=== PATIENT | female | born 1985 | race Caucasian/White ===

== ENCOUNTER 2025-01-05 12:16 | Outpatient (REF) | payer OTHER, SELFPAY ==
--- OUTSIDE RECORDS SUMMARY | 2025-01-05 17:28 | XMS_ITS | Encounter Summary ---
Author Organization [facility] Address [address] [place] [phone] Phone Care Team Providers Care Chucker Name Role Phone Kristy Carreon MD Primary Care Provider Unava ilable Encounter Details Date Type Department Care Team (Late st Contact Info) Description 09/16/2017 Conversion Encounter [facility] - [address] [address] Social History Tobacco Use Types Packs/Day Years [...] on filedocumented in this encounter Care Teams Chucker Relationship Specialty Start Date End Date Kristy Carreon MD PCP - General 06/25/17 documented as of this encounter
--- OUTSIDE RECORDS SUMMARY | 2025-01-05 17:28 | XMS_ITS | Clinical Summary ---
Author Organization [facility] Address [address] [place] [phone] Phone Care Team Providers Care Reed Polisher Name Role Phone Kristy Carreon MD Primary [...] age to complete this topic Care Teams Reed Polisher Relationship Specialty Start Date End Date Kristy Carreon MD PCP - General 06/25/17
[2025-01-06 13:42] LABS: Bacterial Vaginosis PCR POSITIVE (Negative); Candida Group PCR NOT DETECTED (Not Detect); Candida glab krusei PCR NOT DETECTED (Not Detect); Trichomonas vaginalis PCR NOT DETECTED (Not Detect)
[2025-01-06 13:58] LABS: CT PCR NOT DETECTED (Not Detect.); NG PCR NOT DETECTED (Not Detect.)
== END 2025-01-05 12:17 | disposition home or self-care (01) ==
LOC: HO.LNP 12:16
PROVIDERS: Visit Provider Physician Assistant Medical
DX: N89.8 Other specified noninflammatory disorders of vagina (principal)
CPT/HCPCS: 81515; 87491; 87591

== ENCOUNTER 2025-01-05 12:16 | Outpatient (AMB) | payer OTHER, SELFPAY ==
--- NOTE | 2025-01-05 12:44 | MHC.OFFWIV ---
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 Patient Tobacco Use Status: Current everyday Tobacco user Allergies aspirin Allergy (Unknown, Unverified 01/05/25 12:47) HIVES ibuprofen Allergy (Unknown, Unverified 01/05/25 12:47) HIVES Penicillins Allergy (Unknown, Unverified 01/05/25 12:47) HIVES acetaminophen [From Tylenol] Adverse Reaction (Intermediate, Verified 01/05/25 12:47) hives Do you need a note to return to daycare/school/sports/work: No HPI HPI Comments History of Present Illness Details This is a 39-year-old female who presented to the walk-in clinic today complaining of vaginal irritation, burning, and discharge. She states that these symptoms have been going on for 2 weeks. She was using opsa-oac-kikyexw anti-fungal creams for presumed yeast infection but states that her symptoms have persisted. She states that the discharge is thin and clear-white in color. She also states that she has burning of her external genitalia. She denies any urinary symptoms such as dysuria, hematuria, urinary frequency, or urinary urgency. She denies any pelvic or abdominal pain. She states she has been sexually active with a new partner recently. [facility] Social History Patient Tobacco Use Status: Current everyday Tobacco user Review of Systems Const All systems reviewed & are unremarkable except as noted in HPI and below Reports no additional complaints Eyes Reports no additional complaints ENT Reports no additional complaints Card Reports no additional complaints Resp Reports no additional complaints GI Reports no additional complaints Reports no additional complaints Musc Reports no additional complaints Skin/Breast Reports system reviewed and no additional complaints, except as documented Neuro Reports no additional complaints Psych Reports no additional complaints Endo Reports no additional complaints Rodo/Lymph Reports no additional complaints Aller/Immun Reports no additional complaints Physical Exam Vital Signs: Last Vital Signs Pulse 92 01/05/25 12:46 BP 112/74 01/05/25 12:46 Pulse Ox 95 01/05/25 12:46 Oxygen Delivery Method Room Air 01/05/25 12:46 Const Other: Vital signs reviewed. Constitutional: Non-toxic appearing. No acute distress. Well-developed and well-nourished. HEENT: Normocephalic and atraumatic. Skin: Warm and dry. No rashes or lesions noted. Neck: Full and painless range of motion. No cervical lymphadenopathy. Cardio: Regular rate. No lower extremity edema. Pulmonary: No respiratory distress. No accessory muscle usage. Gastrointestinal: Soft, nontender, and nondistended in all 4 quadrants. Genitourinary: There is no erythema or lesions of the external genitalia. No vaginal discharge appreciated. (Susana Hongna present as telegraph and teletype operator). Musculoskeletal: Normal range of motion in joints throughout the body. No deformity or other signs of injury. Neuro: Alert and oriented x4. Cranial nerves 2-12 grossly intact. No focal deficits appreciated. Psych: Normal mood and affect. Assessment & Plan Assessment & Plan (1) Vaginal irritation: Code(s): N89.8 - Other specified noninflammatory disorders of vagina Plan: This is a 39-year-old female who presented to the walk-in clinic complaining of vaginal irritation, burning, and discharge x2 weeks. On physical examination, there is no erythema or lesions of the external genitalia. BV panel and CT NG sent. Patient will be called with the results. Orders: Orders Bacterial Vaginosis Panel Today N89.8 - Other specified noninflammatory disorders of vagina CT NG by PCR Today N89.8 - Other specified noninflammatory disorders of vagina Coding Level of Care Code New Pt Level 3 (89472) Diagnoses Vaginal irritation N89.8
[2025-01-05 12:46] VITALS: BP 112/74; PULSE 92; O2SAT 95
--- OUTSIDE RECORDS SUMMARY | 2025-01-05 13:00 | XMS_ITS | Patient Health Record ---
Author Organization [facility] Address [address] [place] [address] Care Team Providers Care Point Of Sale Associate Name Role Phone Minerva-Nivia Hanson Primary Care Provider ARLYN Ye Unavailable [phone] Allergies Allergen (clinical drug ingredient) Drug/Non Drug Allergy documented on EMR Reaction Allergy Type Onset Date Status acetaminophen / oxycodone Percocet Vomiting Drug Allergy Active acetaminophen Acetaminophen Unknown Drug Allergy Active aspirin Aspirin Hives Drug Allergy Active oxycodone Oxycodone Vomiting Drug Allergy Active thimerosal Thimerosal Unknown Drug Allergy Activ e ibuprofen Ibuprofen Hives Drug Allergy Active Penicillin Hives Drug Allergy Active Reason For Referral No Information Medications Medication SIG (Take, Route, Frequency, Duration) Notes Start Date End Date Status buPROPion HCl ER (XL) 150 MG 1 tablet in the morning Orally Once a day Not-Taking Clobetasol Propionate 0.05 % 1 application Externally Twice a day Active Magnesium Oxide 400 MG 1 tablet as neede d Orally Once a day Active Plan Of Treatment Pending Test Test Name Order Date Nail avulsion partial/complete 2 Nail avulsion partial/complete 2 Removal of nail matrix 11/12/2023 Insurance Providers Payer Name Payer Address Payer Phone Subscriber Number Group Number Insured Name Patient Relationship to Insured Coverage Start Date Coverage End Date [facility] [place] 2[place] [address] [facility] [address] [place] [phone] [id number] Kathy Bobo Self - patient is the insured Medical (General) History Medical History History ICD Code Chronic Eczema Hypercholesterolemia Kawasaki's Disease Obese Class 1 PCOS (Polycystic Ovarian Syndrome) Supraventricular Tachycardia + COVID 10/2021 and 11/2022 COVID vaccinated X 2 (Pfizer) Surgical History Surgery Date(Month/Year) Atrial Ablation 11/01/2012 Right ACL Repair 12/21/02
--- OUTSIDE RECORDS SUMMARY | 2025-01-05 13:00 | XMS_ITS ---
Author Organization [facility] Address [address] [address] Care Team Providers Care Barrow Worker Helper Name Role Phone Nivia Sotomayor Primary Care Provider ANNABEL Ye Unavailable [phone] Allergies Allergen (clinical drug ingredient) Drug/Non Drug Allergy documented on EMR Reaction Allergy Type Onset Date Status acetaminophen / oxycodone Percocet Vomiting Drug Allergy Active acetaminophen Acetaminophen Unknown Drug Allergy Active aspirin Aspirin Hives Drug Allergy Active oxycodone Oxycodone Vomiting Drug Allergy Active thimerosal Thimerosal Unknown Drug Allergy Activ e ibuprofen Ibuprofen Hives Drug Allergy Active Penicillin Hives Drug Allergy Active REASON FOR VISIT B/L ingrown toenails , rt worst- Dr. Tolentino patient Medications Medication SIG (Take, Route, Frequency, Duration) Notes Start Date End Date Status buPROPion HCl ER (XL) 150 MG 1 tablet in the morning Orally Once a day Not-Taking Clobetasol Propionate 0.05 % 1 application Externally Twice a day Active Magnesium Oxide 400 MG 1 tablet as neede d Orally Once a day Active Vital Signs Weight 198.7 lbs 11/12/2023 Height 5ft 2in in 11/12/2023 BMI 36.34 kg/m2 11/12/2023 Heart Rate 80 /min 11/12/2023 Temperature 97.6 degrees Fahrenheit 11/12/20 23 Respiratory Rate 16 /min 11/12/2023 Procedures Procedure Date Ordered Date Performed Result Body Sit e Removal of nail matrix 11/12/2023 N/A Encounters Encounter Location Date Provider Diagnosis [facility] [address] [address] 11/12/2023 ANNABEL SANTAMARIA Ingrowing toenail of right foot L60.0 ; 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 I spent approximately 30 minutes [id number] with the patient. Discussed treatment options for ingrown toenails in detail. This consisted of soaking in Epsom salts twice daily, oral antibiotics to treat infection, partial/total nail avulsion to remove affecting border, and permanent nail avulsion using phenol. Due to the significant pincer deformity a decision was made to perform a total right hallux toenail avulsion and phenol application to the medial and lateral borders. I discussed with her that there is still a small chance the borders grow back or the nail is more damaged. I also discussed that the phenol will cause a burn and it can take 3-4 weeks to heal. She understood and wished to move forward. This procedure was peformed under local anesthetic and she tolerated this well. She was bandaged and given written post-op instructions. I will see her back in 2 weeks or sooner if needed. 11/12/2023 Pincer nail deformity (ICD-10 - L60.8) 11/12/2023 Pain around toenail, right foot (ICD-10 - M79.674) Plan Of Treatment Treatment Notes Assessment Notes Ingrowing toenail of right foot Patient was seen and examined, history reviewed. I spent approximately 30 minutes [id number] with the patient. Discussed treatment options for ingrown toenails in detail. This consisted of soaking in Epsom salts twice daily, oral antibiotics to treat infection, partial/total nail avulsion to remove affecting border, and permanent nail avulsion using phenol. Due to the significant pincer deformity a decision was made to perform a total right hallux toenail avulsion and phenol application to the medial and lateral borders. I discussed with her that there is still a small chance the borders grow back or the nail is more damaged. I also discussed that the phenol will cause a burn and it can take 3-4 weeks to heal. She understood and wished to move forward. This procedure was peformed under local anesthetic and she tolerated this well. She was bandaged and given written post-op instructions. I will see her back in 2 weeks or sooner if needed. Pending Test Test Name Order Date Removal of nail matrix 11/12/2023 Next Appt Details Follow Up: 2 Weeks, Reason: Progress Notes * Kathy GALVEZDOB: 7 (38 yo F)Acc No.[id number]:11/12/2023 Patient:?Kathy GALVEZ Provider:?Annabel Mitchell DPM :1985???Age:38 Y???Sex:Female D ate:11/12/2023 Address:[address] [place], [place] [address] Pcp:Nivia Sotomayor Subjective: * Chief Complaints: * ???B/L ingrown toenails , rt worst- Dr. Tolentino patient * HPI: ???Constitutional:? Ms. Galvez presents for a follow up visit. She has been having pain to the right great toenail for the past few months. She states both sides of the toenail are very bothersome for her. She has noticed redness and some drainage from the edges. The states the toenail itself is very curved and thickened and it always grows into the skin. She denies any past trauma to the toenail. She has been self treating with trimming the edges and soaking the toe. This has provided minimal relief. * ROS:?General/Constitutional:?Denies?Chills.?Denies?Fatigue.?Denies?Fever.?Denies?Headache.?Respiratory:?Denies?Cough.?Denies?Shortness of breath,?denies.?Denies?Wheezing.?Gastrointestinal:?Denies?Abdominal pain.?Denies?Constipation.?Denies?Diarrhea.?Musculoskeletal:?Denies?Arthritis/Arthralgia.?Denies?Joint stiffness.?Denies?Leg cramps.?Skin:?Denies?Masses.?Admits?Nail changes,?right ingrown toenail with nail plate discoloration.?Denies?Skin lesion(s).? * Medical History:? * Surgical History:?Atrial Abl ation 11/01/2012Right ACL Repair 12/21/02 * Hospitalization/Major Diagno stic Procedure:?Denies Past Hospitalization * Family History:?Mother: Canc er, Kidney, hypertension, thyroid cancer.? * Social History:?Does not smoke Alcohol occasionally works as an MA. * Medications:?TakingMagnesium Oxide 400 MG Tablet 1 tablet as needed Orally Once a day Clobetasol Propionate 0.05 % Gel 1 application Externally Twice a day Taking Magnesium Oxide 400 MG Tablet 1 tablet as needed Orally Once a day Taking Clobetasol Propionate 0.05 % Gel 1 application Externally Twice a day Not-TakingbuPROPion HCl ER (XL) 150 MG Tablet Extended Release 24 Hour 1 tablet in the morning Orally Once a day Medication List reviewed and reconciled with the patientNot-Taking buPROPion HCl ER (XL) 150 MG Tablet Extended Release 24 Hour 1 tablet in the morning Orally Once a day Medication List reviewed and reconciled with the patient * Allergies:?Oxycodone: Vomiti ngPercocet: VomitingThimerosalAspirin: HivesIbuprofen: HivesPenicillin: HivesAcetaminophenno[Allergies Verified] Objective: * Vitals:?Wt:198.7lbs, Ht: 5ft 2in, BMI:36.34Index, HR:80/min, Temp:97.6F, RR:16/min, Ht-cm: 157.48, Wt-k.13 kg. * Examination: ???General Examination: ???This is a young female. Alert and oriented today and in no acute distress. Patient comes in ambulating in Crocs without using any assistive devices. Breathing is regular and unlabored while sitting. Affect is pleasant and cooperative. No unusual anxiety or depression noted. Hearing intact to spoken word. No evidence of visual impairment that would impact self care or ambulation. Patient has palpable dorsalis pedis and posterior tibial pulse bilaterally. No varicosities visualized. Capillary refill is less than 3 seconds to all digits bilaterally. Light touch sensation is symmetrical to all lower extremity dermatomes. Babinski is downgoing. Skin has normal turgor and texture. There are no open wounds, rashes, or lesions noted. The right hallux toenail has pincer deformity with tenderness to the lateral, Medial, and proximal borders. There is mild discoloration noted to the right toenail. Mild erythema at the lateral and medial borders, but no active drainage or edema. Subtalar and ankle joint range of motion are unrestricted. 5/5 strength for anterior, posterior, and lateral lower extremity muscle groups on the left and right. No muscle atrophy noted. 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 Plan: * Treatment: 2.?Pincer nail deformity?Procedure: Removal of nail matrix 3.?Pain around toenail, righ t foot?Procedure: Removal of nail matrix * Procedures:?PHENOL MATRIXECTOMY: A consent was gone over in detail today with the patient about phenol matrixectomies. We discussed all risks and benefits. Risks included pain, infection, bleeding, chemical burn, deformity of nail plate, loosening of remaining toenail, discoloration of skin and or nail, need for another nail procedure, and swelling. Benefits included decrease in pain and permanent removal. Patient agreed to have a total avulsion of the right hallux toenail plate with phenol application to the medial and lateral borders. The patient's right foot was prepped with iodine solution and sterile draping was applied. Local anesthesia was infiltrated in a digital nerve block technique using 5cc of 2% lidocaine plain. Pt tolerated the injection well. Anesthesia was tested. Using a sterile elevator, the nail bed was freed of the nail plate dorsally, laterally, medially and plantarly. Using Straight hemostats the nail plate was removed from the nail bed. The area was then inspected, and no other nail remnants were seen. Three 30 second applications of phenol were then performed to the exposed nail matrix in the medial and lateral proximal borders. The area was cleansed with alcohol. Hemostasis maintained with direct pressure. A dressing was applied. Pt tolerated the procedure well. ? * Procedure Codes:?30932 REMOV AL OF NAIL BED, Modifiers: T5 * Follow Up:?2 Weeks * Billing Information: * Visit Code:? 60334 Office Visit, Est Pt., Level 3. Modifiers: 25 * Procedure Codes:? 43599 REMOVAL OF NAIL BED. Modifiers: T5 * Sign off status: Completed true * Provider:?Annabel Mitchell DPM Date:?11/12 Generated for Tasneem bourne/Adams/Laurelsmitting on:?01/05/2025 01:00 PM EST History and Physical Notes * Examination Category Sub-Category Detail Notes Category Not es General Examination This is a young female. Alert and oriented today and in no acute distress. Patient comes in ambulating in Crocs without using any assistive devices. Breathing is regular and unlabored while sitting. Affect is pleasant and cooperative. No unusual anxiety or depression noted. Hearing intact to spoken word. No evidence of visual impairment that would impact self care or ambulation. Patient has palpable dorsalis pedis and posterior tibial pulse bilaterally. No varicosities visualized. Capillary refill is less than 3 seconds to all digits bilaterally. Light touch sensation is symmetrical to all lower extremity dermatomes. Babinski is downgoing. Skin has normal turgor and texture. There are no open wounds, rashes, or lesions noted. The right hallux toenail has pincer deformity with tenderness to the lateral, Medial, and proximal borders. There is mild discoloration noted to the right toenail. Mild erythema at the lateral and medial borders, but no active drainage or edema. Subtalar and ankle joint range of motion are unrestricted. 5/5 strength for anterior, posterior, and lateral lower extremity muscle groups on the left and right. No muscle atrophy noted.
--- OUTSIDE RECORDS SUMMARY | 2025-01-05 13:00 | XMS_ITS ---
Author Organization [facility] Address [address] [place] [address] Care Team Providers Care Budget Clerk Name Role Phone Yajaira Logan Unavailable [phone] Encounters Encounter Location Date Provider Diagnosis [address] [address] 06/28/2024 Yajaira Logan PLAN OF TREATMENT No Information Progress Notes * Kathy GALVEZDOB: 7 (39 yo F)Acc No.[id number]:06/28/2024 Patient:??Kathy GALVEZ Account Number: Provider:??Yajaira Logan PA-C :1985?Age:39 Y?Sex:Fe male Date:06/28/2024 Address:[address] [id number] Subjective: * Chief Complaints: * ? * Medical History:?? Objective: Assessment: Plan: * Treatment: * Images: Billing Information: * Visit Code:?? * Procedure Codes:?? * Sign off status: Pending * Provider:??Yajaira Logan PA-C Date:??06/15
--- OUTSIDE RECORDS SUMMARY | 2025-01-05 13:01 | XMS_ITS ---
Author Organization [facility] Address [address] [address] Care Team Providers Care Optical Goods Drill Operator Name Role Phone Nivia Sotomayor Primary Care Provider Jovana ANNABEL Finley Unavailable [phone] REASON FOR VISIT Lt great toenail removal Encounters Encounter Location Date Provider Diagnosis [facility] [address] [address] 08/25/2024 ANNABEL SANTAMARIA Plan Of Treatment No Information Progress Notes * LEONORKathyDOB: 7 (39 yo F)Acc No.[id number]:08/25/2024 Patient:?Kathy GALVEZ Provider:?Annabel Mitchell DPM :1985???Age:39 Y???Sex:Female D ate:08/25/2024 Address:[address] [place], [place] [id number] Pcp:Nivia Sotomayor Subjective: * Chief Complaints: * ???1. Lt great toenail remov al. * Medical History:? Objective: * Vitals:? Assessment: Plan: * Treatment: * Billing Information: * Visit Code:? * Procedure Codes:? * Electronic signature of DANNIELLE SANTAMARIA D.P.M. on 01/05/2025 at 01:00 PM EST Sign off status: Pending * Provider:Claudia Mitchell DPM Date:?08/25 Generated for Tasneem bourne/Adams/eTransmitting on:?01/05/2025 01:00 PM EST
--- OUTSIDE RECORDS SUMMARY | 2025-01-05 13:01 | XMS_ITS | Patient Health Record ---
Author Organization [facility] Address [address] [place] [address] Care Team Providers Care Varnish Cooker Name Role Phone LINDA PHILLIP MD Primary Care Provider Odessa Rosales [phone] Allergies Allergen (clinical drug ingredient) Drug/Non Drug Allergy documented on EMR Reaction Allergy Type Onset Date Status aspirin Aspirin hives Drug Allergy Active ibuprofen Ibuprofen hives Drug Allergy Active Penicillin hives Drug Allergy Active Reason For Referral No Information Medications Medication SIG (Take, Route, Frequency, Duration) Notes Start Date End Date Status Clobetasol Propionate 0.05 % Externally Active Prometrium 200 MG 4 capsules at bedtim e Orally Once a day day 1-12 of every other month, if no bleeding the month before for 12 day(s) 11/04/2016 Active Social History Tobacco Use: Social History Observation Description Date Details (start date - stop date) Former Smoker NA - NA Tobacco Use/Smoking Question Answer Notes Are you a former smoker How long has it been since you last smoked? 3-6 months Alcohol Screen (Audit-C) Question Answer Notes Did you have a drink containing alcohol in the p ast year? No Points 0 Interpretation Negative Problems Problem Type SNOMED Code ICD Code Onset Dates Problem Status W/U Status Risk Notes Problem Polycystic ovarian syndrome (E28.2) Active confirmed Plan Of Treatment Pending Test Test Name Order Date Ultrasound : Pelvic 09/15/2016 Testosterone 09/15/2016 free testosterone 09/15/2016 Insurance Providers Payer Name Payer Address Payer Phone Subscriber Number Group Number Insured Name Patient Relationship to Insured Coverage Start Date Coverage End Date [facility] [address] [place] [address] [phone] [id number] ERROL GALVEZ Self - patient is the insured Medical (General) History Medical History History ICD Code SVT, s/p cardiac ablation Polycystic ovarian syndrome Surgical History Surgery Date(Month/Year) knee ACL 2003 cardiac ablation 2013
--- OUTSIDE RECORDS SUMMARY | 2025-01-05 13:01 | XMS_ITS ---
Author Organization [facility] Address [address] [address] Care Team Providers Care Doughnut Batter Mixer Name Role Phone Nivia Sotomayor Primary Care Provider Jovana ANNABEL Finley Unavailable [phone] REASON FOR VISIT Lt great toenail removal Encounters Encounter Location Date Provider Diagnosis [facility] [address] [address] 08/04/2024 ANNABEL SANTAMARIA Plan Of Treatment No Information Progress Notes * LEONORAlyshaalma rosaDOB: 7 (39 yo F)Acc No.[id number]:08/04/2024 Patient:?Kathy GALVEZ Provider:?Annabel Mitchell DPM :1985???Age:39 Y???Sex:Female D ate:08/04/2024 Address:[address] [place], [place] [id number] Pcp:Nivia Sotomayor Subjective: * Chief Complaints: * ???1. Lt great toenail remov al. * Medical History:? Objective: * Vitals:? Assessment: Plan: * Treatment: * Billing Information: * Visit Code:? * Procedure Codes:? * Electronic signature of DANNIELLE SANTAMARIA D.P.M. on 01/05/2025 at 01:00 PM EST Sign off status: Pending * Provider:Claudia Mitchell DPM Date:?08/04 Generated for Tasneem bourne/Adams/eTransmitting on:?01/05/2025 01:00 PM EST
--- OUTSIDE RECORDS SUMMARY | 2025-01-05 13:01 | XMS_ITS | Patient Health Record ---
Author Organization [facility] Address [address] [place] [address] Care Team Providers Care Soft Work Wrapper Examiner Name Role Phone Yajaira Logan Unavailable [phone] REASON FOR REFERRAL No Information Encounters Encounter Location Date Provider Diagnosis [address] [address] 06/28/2024 Yajaira Doreen PLAN OF TREATMENT No Information Insurance Providers Payer Name Payer Address Payer Phone Subscriber Number Group Number Insured Name Patient Relationship to Insured Coverage Start Date Coverage End Date [facility] [address] [place] [id number] Kathy Bobo Self - patient is the insured
--- OUTSIDE RECORDS SUMMARY | 2025-01-05 13:01 | XMS_ITS | Clinical Summary ---
Author Organization [facility] Address [address] [place] [id number] Phone Care Team Providers Care Embossing Calender Operator Name Role Phone Kristy Carreon MD Primary Care Provider Unava ilable Immunizations Immunization Administration Dates Next Due DTP 02/12/1999, 8,10/14/1997,1996,02/13/1992 IPV 02/12/1999, 7,08/14/1997,1991 MMR 09/14/1999,09/14/1998 Td (adult) (MBL), 2 Lf tetan us toxoid, PF, adsorbed 12/20/2000,12/26/1999 Social History Tobacco Use Types Packs/Day Years Used Date Smoking Tobacco: Never Assessed Comments Unknown Sex and Gender Information Value Date Recorded Sex Assigned at Not on file Legal Sex Female 4:31 PM EDT Gender Identity Not on file Sexual Orientation Not on file Plan of Treatment Health Maintenance Due Date Last Done Comments Varicella Vaccines (1 of 2 - 13+ 2-dose series) 2000 Hepatitis B Vaccines (1 of 3 - 19+ 3-dose series) 2006 DTaP,Tdap,and Td Vaccines (6 - Tdap) 12/20/2010 12/20/2000, 12/26/1999, 02/12/1999, Additional history exists Influenza Vaccines (#1) 2024 COVID-19 Vaccine ( season) 2024 IPV Vaccines Completed 02/12/1999, 09/17, 08/14/1997, Additional history exists MMR Vaccines Completed 09/14/1999, 09/14/1998 HIB Vaccines Aged Out No longer eligi ble based on patient's age to complete this topic HPV Vaccines Aged Out No longer eligi ble based on patient's age to complete this topic Hepatitis A Vaccines Aged Out No long er eligible based on patient's age to complete this topic Men B Vaccine Aged Out No longer elig ible based on patient's age to complete this topic Meningococcal Vaccine Aged Out No aleisha aristeo eligible based on patient's age to complete this topic Pneumococcal Vaccine Aged Out No long er eligible based on patient's age to complete this topic Care Teams Embossing Calender Operator Relationship Specialty Start Date End Date Kristy Carreon MD PCP - General 06/25/17
--- OUTSIDE RECORDS SUMMARY | 2025-01-05 13:01 | XMS_ITS | Encounter Summary ---
Author Organization [facility] Address [address] [place] [phone] Phone Care Team Providers Care Manager Beauty Name Role Phone Kristy Carreon MD Primary Care Provider Unava ilable Encounter Details Date Type Department Care Team (Late st Contact Info) Description 09/16/2017 Conversion Encounter [facility] - [address] [id number] Social History Tobacco Use Types Packs/Day Years Used Date Smoking Tobacco: Never Assessed Comments Unknown Sex and Gender Information Value Date Recorded Sex Assigned at Not on file Legal Sex Female 4:31 PM EDT Gender Identity Not on file Sexual Orientation Not on file documented as of this encounter Plan of Treatment Not on file documented as of this encounter Visit Diagnoses Not on filedocumented in this encounter Care Teams Manager Beauty Relationship Specialty Start Date End Date Kristy Carreon MD PCP - General 06/25/17 documented as of this encounter
== END 2025-01-05 14:07 | disposition home or self-care (01) ==
PROVIDERS: Visit Provider Physician Assistant Medical
DX: N89.8 Other specified noninflammatory disorders of vagina (principal)

== ENCOUNTER 2025-01-06 11:37 | Outpatient (REF) | payer OTHER, SELFPAY | END 2025-01-06 11:38 | disposition home or self-care (01) | LOC: HO.LAB 11:37 | PROVIDERS: Visit Provider Physician Assistant Medical | DX: Z13.89 Encounter for screening for other disorder (principal) ==